=== PATIENT | male | born 1995 | race African-American/Black ===

== ENCOUNTER 2017-01-24 13:38 | Emergency (ER) | payer OTHER ==
--- NOTE | ~2017-01-24 | ER ---
PATIENT'S NAME: HARPAL GUZMAN [facility] AGE: 21 Y [address] ROOM: [place] [address] LOCATION: [facility] ADMIT DATE: 01/24/2017 ER/Outpatient Report DISCHARGE DATE: 01/24/2017 FAMILY PHYSICIAN: Danyell Lu Access Control Specialist ATTENDING PHYSICIAN: Cherelle Wynne Time of Arrival: 1340 hours. Time of Exam: 1348 hours. CHIEF COMPLAINT: Fever. HISTORY OF PRESENT ILLNESS: The patient states he saw Dr. Lu yesterday and was diagnosed with strep throat, was given a prescription for amoxicillin, got started on it this morning, has taken 1 dose. Presents to the ER because he continues to run a fever and has sore throat and difficulty swallowing. Fever at home was 104.3. He states he last took Tylenol and ibuprofen yesterday and has not had anything today. He has not been nauseated, has not vomited, has not had a cough. ALLERGIES: NO KNOWN ALLERGIES. CURRENT MEDICATIONS: Amoxicillin. PAST MEDICAL HISTORY: Strep throat currently. PAST SURGERIES: Negative. SOCIAL HISTORY: Denies use of tobacco, drugs, or alcohol. REVIEW OF SYSTEMS: All negative other than those mentioned in the HPI. PHYSICAL EXAMINATION: VITAL SIGNS: He weighed 89.5 kg. Blood pressure 137/63, pulse of 112, respirations 18, temperature of 104.3 tympanic, and O2 saturation is 96% on room air. GENERAL: He is awake, alert, and oriented x4. Skin: [place], warm, and dry. PATIENT'S NAME: HARPAL GUZMAN [facility] AGE: 21 Y [address] ROOM: [place] [address] LOCATION: [facility] ADMIT DATE: 01/24/2017 ER/Outpatient Report DISCHARGE DATE: 01/24/2017 FAMILY PHYSICIAN: Danyell Lu Access Control Specialist ATTENDING PHYSICIAN: Cherelle Wynne RESPIRATIONS: Even and nonlabored. HEENT: Oropharynx is pink and moist. Has red throat posteriorly with 2+ swelling. NECK: Supple. No lymphadenopathy. No drooling noted. HEART: Regular rate and rhythm. LUNGS: Lung sounds are clear throughout. EMERGENCY ROOM COURSE: The patient was given acetaminophen 1000 mg p.o. He was able to swallow the tablets without difficulty. Monitored. Temperature did come down to 102.4 tympanic. O2 sats remained greater than 95%. IMPRESSION: Fever, related to strep throat. PLAN: Home, rest, fluids. Alternating Tylenol and ibuprofen. Take amoxicillin as prescribed. Follow up with Dr. Lu if symptoms persist or worsen. Grandfather who is with the patient states the patient is part of [place] and was asking whether he could take it without causing problems. I reported that is an antibiotic and it has been prescribed specifically for him, so there should be no difficulty in taking the medicine. Family is also very concerned about other members being allergic to amoxicillin. At that time of the patient's evaluation, he did not have any signs of hives, rash, or difficulty breathing. Discussed with them if he has problems as he is taking the amoxicillin, to either return to the ER or contact Dr. Lu. They verbalized understanding. ALYSON SHOEMAKER APRN FOR MD MARINA CLARK/popeye /[id number] d: 01/24/178 t: 01/27/17 1221, OUTPATIENT REPORT
== END 2017-01-24 14:36 | disposition disaster alternative care site (69) ==
LOC: GMED 13:38
DX: J02.0 Streptococcal pharyngitis (principal)

== ENCOUNTER 2017-04-03 22:51 | Emergency (ER) | payer OTHER ==
--- NOTE | ~2017-04-03 | ER ---
PATIENT'S NAME: HARPAL GUZMAN [facility] AGE: 22 Y [address] ROOM: [place] [address] LOCATION: [facility] ADMIT DATE: 04/03/2017 ER/Outpatient Report DISCHARGE DATE: 04/04/2017 FAMILY PHYSICIAN: PHYSICIAN, NO ATTENDING PHYSICIAN: Herb Cai Admission date and time documented on the medical record. I saw the patient at 2305 hours. CHIEF COMPLAINT: Dysuria, urinary frequency, urgency, or penile discharge. HISTORY OF PRESENT ILLNESS: This patient is a 22-year-old male, who presented to the emergency room with onset this morning of dysuria, urinary frequency and urgency. He also had penile discharge. He has a past history of 2-3 years ago that had gonorrhea and chlamydia. He has suprapubic cramping. No fever, chills, sweats. No chest pain, shortness of breath. No nausea, vomiting, or diarrhea. HOME MEDICATIONS: None. ALLERGIES: NONE. SOCIAL HISTORY: The patient smokes half pack of cigarettes per day. Occasional intake of alcohol. SIGNIFICANT PAST MEDICAL HISTORY: Tobacco abuse. PAST HISTORY: Gonorrhea, chlamydia, and sexually transmitted infection. OPERATIONS: None. REVIEW OF SYSTEMS: All systems reviewed by me are negative with exception of those discussed in the history of present illness. PHYSICAL EXAMINATION: VITAL SIGNS: Temperature 98, pulse 83, respirations 18, blood pressure 129/64, O2 saturation on room air is 97%. PATIENT'S NAME: HARPAL GUZMAN [facility] AGE: 22 Y [address] ROOM: [place] [address] LOCATION: [facility] ADMIT DATE: 04/03/2017 ER/Outpatient Report DISCHARGE DATE: 04/04/2017 FAMILY PHYSICIAN: PHYSICIAN, NO ATTENDING PHYSICIAN: Hreb Cai HEENT: Head: Normocephalic. Eyes, Ears, Nose, Throat: Clear. NECK: Negative. SPINE: Negative. LUNGS: Clear. HEART: Regular. ABDOMEN: Soft, nontender. Good bowel tones. NEUROVASCULAR: Intact. LABORATORY DATA: Urinalysis showed 50-100 whites, 0-2 reds, 0-2 epithelial cells, moderate bacteria per high-powered field. Culture pending. Urine detection of gonorrhea and chlamydia were both negative. IMPRESSION: Penile discharge with dysuria, frequency, and urgency. PLAN: The patient was given azithromycin 1 g orally in the emergency room and Rocephin 1 g IM in the emergency room. Discharged home. Awaiting urine culture. Fluids and diet as tolerated. Follow up with personal physician as needed. If no improvement in 24-48 hours, he is to return. Discussion ensued with the patient concerning my findings and recommendations, he understands. MD DANIEL MONTANO/modl /[id number] d: 04/04/17821 t: 04/04/171810, OUTPATIENT REPORT
[2017-04-03 23:24] LABS: BILIRUBIN URINE NEGATIVE (NEGATIVE); BLOOD URINE 25 /UL (NEGATIVE); COLOR URINE YELLOW (YELLOW); GLUCOSE URINE NEGATIVE (NEGATIVE); KETONE URINE NEGATIVE (NEGATIVE); LEUKOCYTES URINE 500 /UL (NEGATIVE); NITRITE URINE NEGATIVE (NEGATIVE); PROTEIN URINE 15 mg/dL (NEGATIVE); SPEC GRAVITY URINE 1.025 (1.003-1.035); TURBIDITY URINE 2+ (CLEAR); UROBILINOGEN URINE 4 mg/dL (NORMAL)
[2017-04-03 23:33] LABS: BACTERIA URINE MODERATE (NEGATIVE); EPITHELIAL URINE 0-2 #/HPF (NEGATIVE); RBC URINE 0-2 #/HPF (NEGATIVE); WBC URINE 50-100 #/HPF (NEGATIVE)
== END 2017-04-04 01:19 | disposition disaster alternative care site (69) ==
LOC: GMED 22:51
PROVIDERS: Emergency Medicine
DX: R36.9 Urethral discharge, unspecified (principal); R30.0 Dysuria; R35.0 Frequency of micturition; R39.15 Urgency of urination; F17.210 Nicotine dependence, cigarettes, uncomplicated; Z86.19 Personal history of other infectious and parasitic diseases
CPT/HCPCS: J0696